=== PATIENT | male | born 1960 | race Caucasian/White ===

== ENCOUNTER 2018-03-18 06:07 | Emergency (ER) | payer BC, SELFPAY ==
[2018-03-18 06:09] VITALS: BP 116/95; PULSE 155; RESP 15; TEMP 36.3; O2SAT 100; BMI 24.9
--- NOTE | 2018-03-18 06:18 | EKG12_ITS ---
Test Reason : Blood Pressure : / mmHG Vent. Rate : 141 BPM Atrial Rate : 131 BPM P-R Int : 000 ms QRS Dur : 072 ms QT Int : 300 ms P-R-T Axes : 000 050 078 degrees QTc Int : 459 ms Atrial fibrillation Low voltage QRS (LIMB LEADS) Nonspecific T wave abnormality Abnormal ECG Confirmed by JUDY GROVE, WILLARD ([id number]), senior technical editor CANDY SMALLS ([id number] on 03/23/2018 1:43:52 PM Referred By: NABILA Confirmed By:WILLARD KIM MD
--- NOTE | 2018-03-18 06:18 | RAD_ITS ---
STUDY: X-RAY CHEST REASON FOR EXAM: Male, 57 years old. Palpitations TECHNIQUE: Single frontal view of the chest. COMPARISON: None. FINDINGS: The lungs are clear and expanded. There is no demonstrated pleural abnormality. Normal size heart. Normal mediastinum and rebel. Normal visualized pulmonary arteries. Normal visualized aortic arch and descending thoracic aorta. Normal visualized thoracic spine. Normal visualized ribs, clavicles, and shoulders. There is no demonstrated abnormality of the visualized soft tissue structures of the upper abdomen. RAD/Chest 1 View (Portable) IMPRESSION: Normal x-ray examination of the chest. Electronically Signed: Christian Brown MD at 6:58 EDT Tel , Service support ,
[2018-03-18 06:26] LABS: Absolute Lymphocyte Count 2.34 X10^3/ul (0.83-4.51); Absolute Neutrophil Count 4.3 X10^3/uL (2.0-7.7); Basophil# 0.05 X10^3/uL; Basophil% 0.7 % (0-1); Eosinophil# 0.21 X10^3/uL; Eosinophils% 2.8 % (0-5); Hematocrit 46.1 % (40-54); Hemoglobin 16.1 g/dl (13.0-16.5); Lymphocyte # 2.34 X10^3/ul (4.0); Lymphocyte % 30.7 % (19-41); Mean Corp Hgb Conc 34.9 g/gl (32-36); Mean Corpuscular Hgb 31.6 pg (27.0-32.0); Mean Corpuscular Volume 90.6 fL (80-94); Mean Platelet Vol. 9.1 fl (6.2-12.0); Monocyte# 0.73 X10^3/uL; Monocyte% 9.6 % (0-10); Neutrophil # 4.26 X10^3/uL (2.7-7.7); Neutrophil % 55.8 % (47-70); Platelet Count 455 K/mm3 (150-450); RBC Distribution Width CV 13.2 % (11.6-14.6); RBC Distribution Width SD 43.3 fl (35.1-43.9); Red Blood Count 5.09 M/mm3 (4.6-6.2); White Blood Count 7.6 K/mm3 (4.4-11.0)
[2018-03-18] MEDS: dilTIAZem 25 MG/5 ML Vial 20 MG IV BOLUS (06:28)
[2018-03-18] MEDS: 0.9% Normal Saline 1,000 ML 150 ML IV (06:28)
[2018-03-18 06:35] LABS: POSITIVE COUNT NO; POSITIVE DIFFERENTIAL NO; POSITIVE MORPHOLOGY NO
[2018-03-18 06:46] LABS: Anion Gap 8 (5-15); BUN 22 mg/dL (7-18); BUN/Creat Ratio 19.5 RATIO (10-20); Calcium,Total 8.7 mg/dL (8.5-10.1); Chloride 106 mmol/L (98-107); Creatinine, Serum 1.13 mg/dL (0.70-1.30); EST Glomerular Filtration Rate 71 mL/min (>60); Est Glom Filt Rate - Afr Amer 86 mL/min (>60); Glucose 111 mg/dL (74-106); Potassium 4.9 mmol/L (3.5-5.1); Sodium Level 141 mmol/L (136-145)
--- NOTE | 2018-03-18 07:14 | ED.VISSUMM ---
- ER Visit Summary Date of Service: 03/18/18 Chief Complaint: [Weak and dizzy] History of Present Illness: The patient is a 57 M [presents the emergency department complaint of feeling weak and dizzy since 8 PM last night. Patient was sitting on the couch when he started feeling funny. Patient denies any chest pain or shortness of breath. Patient is not aware of palpitations or racing heart. Patient states that he does have a history of remote atrial fibrillation but has never been anticoagulated other than taking a full dose aspirin. Patient states that he has a history of hypertension and used to be on medication but has not seen a primary care physician in several years. Patient denies recent illness although he states he did have bronchitis 2 weeks ago that has since resolved.] Physical Examination: [HEENT-PERRLA, EOMI. Cranial nerves II through XII grossly intact. TMs clear. Mucous membranes moist. No adenopathy. Cardiovascular-irregularly irregular and tachycardic. No murmurs auscultated. Lungs-clear to auscultation, chest wall stable without crepitus or subcu emphysema Abdomen-normoactive bowel sounds, soft, nontender, no rebound or rigidity, no peritoneal signs. Extremities-intact ?4, normal range of motion, normal pulses, atraumatic] Test Results: [EKG obtained on arrival showed atrial fibrillation with a rapid ventricular response with a rate of 141 bpm. CBC with differential 7.6, hemoglobin 16, hematocrit 46, platelets 455. Chemistries unremarkable. Troponin was less than 0.015. Chest x-ray was normal.] Emergency Department Course and Treatment: [Patient received Cardizem 20 mg IV bolus and that did slow his heart rate down into the 80s-90s. Case was discussed with interior wirer on-call Dr. Edgar Landon who asked that we start patient on Eliquis and Toprol-XL. We were asked to repeat a 3 hour troponin and if patient is rate control was felt patient could be followed up in Dr. Edgar Landon's office and would not require admission.] Care of patient turned over to morning physician awaiting repeat 3 hour troponin and repeat evaluation. Treatment Plan: [Pending] Disposition: [Pending] Impression: [A. fib RVR] This note was generated with [employer] dictation software. It may contain incorrect words, spelling, and punctuation that were not noted in review of the chart prior to signing ED Disposition - Plan for ED Patient: Chief Complaint: Dizziness Referrals: Care Physician,No Primary [Primary Care Provider] -
--- NOTE | 2018-03-18 07:17 | ED.DCSUM_ITS ---
- ER Visit Summary Date of Service: 03/18/18 Chief Complaint: [Weak and dizzy] History of Present Illness: The patient is a 57 M [presents the emergency department complaint of feeling weak and dizzy since 8 PM last night. Patient was sitting on the couch when he started feeling funny. Patient denies any chest pain or shortness of breath. Patient is not aware of palpitations or racing heart. Patient states that he does have a history of remote atrial fibrillation but has never been anticoagulated other than taking a full dose aspirin. Patient states that he has a history of hypertension and used to be on medication but has not seen a primary care physician in several years. Patient denies recent illness although he states he did have bronchitis 2 weeks ago that has since resolved.] Physical Examination: [HEENT-PERRLA, EOMI. Cranial nerves II through XII grossly intact. TMs clear. Mucous membranes moist. No adenopathy. Cardiovascular-irregularly irregular and tachycardic. No murmurs auscultated. Lungs-clear to auscultation, chest wall stable without crepitus or subcu emphysema Abdomen-normoactive bowel sounds, soft, nontender, no rebound or rigidity, no peritoneal signs. Extremities-intact ?4, normal range of motion, normal pulses, atraumatic] Test Results: [EKG obtained on arrival showed atrial fibrillation with a rapid ventricular response with a rate of 141 bpm. CBC with differential 7.6, hemoglobin 16, hematocrit 46, platelets 455. Chemistries unremarkable. Troponin was less than 0.015. Chest x-ray was normal.] Emergency Department Course and Treatment: [Patient received Cardizem 20 mg IV bolus and that did slow his heart rate down into the 80s-90s. Case was discussed with garbage collector on-call Dr. Edgar Landon who asked that we start patient on Eliquis and Toprol-XL. We were asked to repeat a 3 hour troponin and if patient is rate control was felt patient could be followed up in Dr. Edgar Landon's office and would not require admission.] Care of patient turned over to morning physician awaiting repeat 3 hour troponin and repeat evaluation. Treatment Plan: [Pending] Disposition: [Pending] Impression: [A. fib RVR] This note was generated with [employer] dictation software. It may contain incorrect words, spelling, and punctuation that were not noted in review of the chart prior to signing ED Disposition - Plan for ED Patient: Chief Complaint: Dizziness Referrals: Care Physician,No Primary [Primary Care Provider] -
[2018-03-18] MEDS: Metoprolol(XL)Succ 25 MG Tablet PO (07:26)
[2018-03-18 07:27] VITALS: BP 99/63; PULSE 88; RESP 16; O2SAT 98
[2018-03-18] MEDS: APIXABAN 5 MG TABLET 10 MG PO (07:27)
--- NOTE | 2018-03-18 07:27 | EKG12_ITS ---
Test Reason : Blood Pressure : / mmHG Vent. Rate : 100 BPM Atrial Rate : 120 BPM P-R Int : 000 ms QRS Dur : 072 ms QT Int : 360 ms P-R-T Axes : 000 043 071 degrees QTc Int : 464 ms Atrial fibrillation Low voltage QRS (LIMB LEADS) Nonspecific T wave abnormality Abnormal ECG Confirmed by JUDY GROVE, WILLARD ([id number]), editorial assistant CANDY SMALLS ([id number]) on 03/23/2018 1:44:24 PM Referred By: CYNTHIA Confirmed By:WILLARD KIM MD
--- NOTE | 2018-03-18 07:28 | ED.VISSUMM ---
- ER Visit Summary Date of Service: 03/18/18 Test Results: Repeat EKG is atrial fibrillation at a rate of 100. It is unchanged from his prior. Is also unchanged from 2011. Repeat troponin is less than 0.015. Emergency Department Course and Treatment: Patient was treated with Lopressor p.o. and Eliquis p.o. His heart rate ranged between 70s-140s. He was given 5 mg of Lopressor IV. He is resting comfortably and would like to go home. Treatment Plan: Patient was discussed with Dr. Landon. He will be placed on 25 mg of Lopressor twice daily. He will also be placed on Eliquis. He has already schedule appointment to be seen in 5 days. Return to the emergency department for any worsening symptoms. Disposition: To home in improved and stable condition. Impression: 1. Atrial fibrillation with RVR. This note was generated with [employer] dictation software. It may contain incorrect words, spelling, and punctuation that were not noted in review of the chart prior to signing ED Disposition - Plan for ED Patient: Chief Complaint: Dizziness Instructions: ED Afib Prescriptions: Apixaban [Eliquis] 5 mg PO BID #60 tablet Metoprolol Tartrate [Lopressor (Beta Leandra)] 25 mg PO BID #60 tablet Referrals: Edgar Landon MD [STAFF PHYSICIAN] - 1 Week
[2018-03-18 09:05] VITALS: BP 109/93; PULSE 122; RESP 22
[2018-03-18] MEDS: Metoprolol Tartrate 5 MG/5 ML Vial IV (09:54)
[2018-03-18 10:18] VITALS: BP 116/73; PULSE 103; RESP 16; O2SAT 98
== END 2018-03-18 10:19 | disposition home or self-care (01) ==
PROVIDERS: Emergency Medicine; Emergency Provider Emergency Medicine
DX: I48.91 Unspecified atrial fibrillation (principal); I10 Essential (primary) hypertension; Z72.0 Tobacco use; Z79.82 Long term (current) use of aspirin; Z87.09 Personal history of other diseases of the respiratory system
CPT/HCPCS: 36415; 71045; 80048; 84484; 85025; 93005; 96361; 96374; 96375; 99284; J7030; A4216